=== PATIENT | female | born 1970 | race Caucasian/White ===

== ENCOUNTER → 2017-07-20 | Outpatient (CLI) | payer OTHER ==
[~2017-07-20] MED LIST: PRENTAB26
[2017-07-20 18:00] LABS: BASO % 1.5 %; BASO ABS # 0.07 K/uL (0-0.2); COMPLETE YES; EOS % 1.1 %; HEMATOCRIT 43.7 % (37-47); LYMPH % 23.7 %; LYMPH ABS # 1.11 K/uL (1.2-3.4); MEAN CELL VOLUME 88.8 fL (80-100); MEAN CORPUSCULAR HEMOGLOBIN 29.9 pg (25-34); MEAN CORPUSCULAR HGB CONC 33.6 g/dl (32-36); MONO % 4.9 %; NEUT % 68.8 %; PLATELET COUNT 256 K/uL (130-400); RED BLOOD COUNT 4.92 M/uL (4.2-5.4); WHITE BLOOD COUNT 4.69 K/uL (4.8-10.8)
[2017-07-20 18:13] LABS: ALT/SGPT 24 U/L (12-78); BLOOD UREA NITROGEN 14 mg/dl (7-18); BUN/CREATININE RATIO 17.9 (10-20); CALCIUM 9.3 mg/dl (8.5-10.1); CARBON DIOXIDE 29 mmol/L (21-32); CHLORIDE 104 mmol/L (98-107); CREATININE 0.79 mg/dl (0.60-1.20); GLUCOSE 82 mg/dl (70-99); POTASSIUM 3.6 mmol/L (3.5-5.1); SODIUM 139 mmol/L (136-145)
[2017-07-20 18:24] LABS: ALB/GLOB RATIO 1.3 (0.9-2); ALKALINE PHOSPHATASE 63 U/L (45-117); AST/SGOT 12 U/L (15-37); CHOLESTEROL 210 mg/dl (0-200); CHOLESTEROL/HDL RATIO 2.7; HDL CHOLESTEROL 79 mg/dl; LDL CHOLESTEROL CALCULATED 111 mg/dl; TRIGLYCERIDES 100 mg/dl (0-150); VERY LOW DENSITY LIPOPROT CALC 20 mg/dl
[2017-07-20 21:21] LABS: LYME DISEASE AB IGG NEG (NEG)
[2017-07-20 21:23] LABS: LYME DISEASE AB IGM POS (NEG)
[2017-07-23 08:50] LABS: 18KDIGG BAND NONREACTIVE (NONREACTIVE); 23KDIGG BAND NONREACTIVE (NONREACTIVE); 23KDIGM BAND REACTIVE (NONREACTIVE); 28KDIGG BAND NONREACTIVE (NONREACTIVE); 30KDIGG BAND NONREACTIVE (NONREACTIVE); 39KDIGG BAND NONREACTIVE (NONREACTIVE); 39KDIGM BAND NONREACTIVE (NONREACTIVE); 41KDIGG BAND NONREACTIVE (NONREACTIVE); 41KDIGM BAND NONREACTIVE (NONREACTIVE); 45KDIGG BAND NONREACTIVE (NONREACTIVE); 58KDIGG BAND NONREACTIVE (NONREACTIVE); 66KDIGG BAND NONREACTIVE (NONREACTIVE); 93KDIGG BAND NONREACTIVE (NONREACTIVE)
== END | disposition home or self-care (01) ==
LOC: C.LABMFLN 11:01
PROVIDERS: ATTEND Physician Assistant
DX: Z00.00 Encounter for general adult medical examination without abnormal findings (principal); Z13.220 Encounter for screening for lipoid disorders; R06.02 Shortness of breath; R07.9 Chest pain, unspecified; Z13.1 Encounter for screening for diabetes mellitus; R53.83 Other fatigue; R52 Pain, unspecified

== ENCOUNTER → 2017-07-20 | Outpatient (CLI) | payer OTHER ==
--- NOTE | 2017-07-20 13:38 | DIAGNOSTIC IMAGING REPORT ---
CHEST 2 VIEWS ROUTINE HISTORY: 47 years-old Female CHEST PAIN, PALPITATIONS, SHORTNESS OF BREATH acute atypical chest pain with lightheadedness COMPARISON: None available TECHNIQUE: 2 views of the chest FINDINGS: Cardiomediastinal and hilar silhouettes are within normal limits. There is no pneumothorax, pleural effusion, focal airspace consolidation or overt pulmonary edema. Bones of the chest are grossly intact. Cholecystectomy clips noted. Surgical clip projects over the left mid breast. IMPRESSION: No acute cardiopulmonary process. The above report was generated using voice recognition software. It may contain grammatical, syntax or spelling errors. Electronically signed by: Randal Josue M.D. 07/20/2017 1:37 PM Dictated Date/Time: 07/20/2017 1:36 PM
== END | disposition home or self-care (01) ==
LOC: C.RAD 13:10
PROVIDERS: ATTEND Physician Assistant
DX: R07.9 Chest pain, unspecified (principal); R00.2 Palpitations; R06.02 Shortness of breath

== ENCOUNTER → 2017-08-18 | Outpatient (CLI) | payer OTHER ==
--- NOTE | 2017-08-18 15:02 | EXERCISE STRESS ECHO ---
*NOTICE TO RECEIVING [employer] This information is strictly Confidential and protected under [place] law. [place] law prohibits you from making any further disclosure of this information unless further disclosure is expressly permitted by the written consent of the person to whom it pertains or is authorized by law. A general authorization for the release of medical or other information is not sufficient for this purpose. Hospital accepts no responsibility if the information is made available to any other person, INCLUDING THE PATIENT. Interpretation Summary * Name: CAMERON SOLORZANO Study Date: 08/18/2017 09:52 AM BP: 105/75 mmHg * Patient Location: [facility] HR: 64 * : 1970 (M/d/yyyy) Gender: Female Height: 64 in * Age: 47 yrs Ethnicity: CA Weight: 124 lb * Ordering Physician: Rodrigo Green * Referring Physician: Nolvia Suarez * Performed By: Yris Limon RCS * * Reason For Study: CHEST PAIN / SOB * BSA: 1.6 m2 * -- Conclusions -- * Stress Echo: * 1. Negative stress echo for ischemia at 95 % MPHR. * 2. Negative exercise ECG for ischemia at 95 % MPHR. * 3. Appropriate blood pressure response to exercise. * 4. No arrhythmia. * 5. Study terminated due to fatigue. No chest pain reported. * 6. Good exercise tolerance. * Echo: * 1. Normal left ventricular size and systolic function. EF 55-60%. No regional wall motion abnormalities. No left ventricular hypertrophy. No significant diastolic dysfunction. * 2. No significant valvular abnormalities. * 3. Normal estimated right ventricular systolic pressure; 20mmHg. Procedure Details * ECHOEX, CPT #[id number] * ECHO COLOR FLOW, CPT #[id number] * ECHO DOPPLER, CPT #[id number] Left Ventricle * The left ventricle is normal in size. * There is normal left ventricular wall thickness. * Left ventricular systolic function is normal. * The left ventricular ejection fraction increases normally with stress. The left ventricular end-systolic cavity size reduces post-stress (normal response). The left ventricular wall motion with stress is normal. * Resting wall motion: Normal. Stress wall motion: Appropriate increase in Left ventricular systolic function and decrease in cavity size. No stress induced segmental wall motion abnormalities. * No regional wall motion abnormalities noted. Right Ventricle * The right ventricle is normal in size and function. * The right ventricular systolic function is normal as assessed by tricuspid annular plane systolic excursion (TAPSE) (normal >1.5 cm). Atria * The left atrial size is normal. * Right atrial size is normal. * There is no evidence of atrial septal defect, but resolution does not allow assessment for a patent foramen ovale. Mitral Valve * The mitral valve leaflets appear normal. There is no evidence of stenosis, fluttering, or prolapse. * There is trace mitral regurgitation. Tricuspid Valve * The tricuspid valve is not well visualized, but is grossly normal. * There is no tricuspid stenosis. * There is trace tricuspid regurgitation. Aortic Valve * The aortic valve is trileaflet. * No hemodynamically significant valvular aortic stenosis. * Trace aortic regurgitation. Pulmonic Valve * The pulmonary valve is inadequately visualized, but the Doppler data is adequate for interpretation. * There is no significant pulmonary regurgitation. Great Vessels * The aortic root is normal size. * Aortic arch of normal dimension. * Normal pulmonary venous flow pattern. Normal pulmonary venous flow pattern. Pericardium * There is no pericardial effusion. Stress Parameters * NSR * No arrhythmia were noted with stress. * Stress ECG: No ST changes. No arrhythmias. * The stress portion of this study was personally supervised by the undersigned interpreting physician. * Rest heart rate was '64' BPM. * Rest blood pressure was '105/75' * Maximum heart rate achieved was 164 bpm. * Maximum blood pressure was '153/80' * Total exercise time was '10:05' * Maximum exercise MET level achieved was '11.80' METS * Maximum heart rate was 95 % of maximum age-predicted heart rate. * Maximum treadmill speed was '4.20' miles per hour. * Maximum treadmill elevation was '16.00'% grade. * Exercise was terminated due to 'fatigue' * Normal blood pressure response to exercise. MMode 2D Measurements and Calculations IVSd 0.92 cm IVSs 1.1 cm LVIDd 4.0 cm LVIDs 2.9 cm LVPWd 0.67 cm LVPWs 0.99 cm IVS/LVPW 1.4 FS 27.8 % EDV(Teich) 70.2 ml ESV(Teich) 32.0 ml EF(Teich) 54.4 % EDV(cubed) 64.2 ml ESV(cubed) 24.2 ml EF(cubed) 62.3 % % IVS thick 25.1 % % LVPW thick 47.2 % LV mass(C)d 92.7 grams LV mass(C)dI 58.1 grams/m\S\2 LV mass(C)s 86.3 grams LV mass(C)sI 54.1 grams/m\S\2 SV(Teich) 38.2 ml SI(Teich) 23.9 ml/m\S\2 SV(cubed) 40.0 ml SI(cubed) 25.1 ml/m\S\2 Ao root diam 2.8 cm Ao root area 6.4 cm\S\2 LA dimension 2.6 cm LA/Ao 0.92 LVOT diam 1.8 cm LVOT area 2.5 cm\S\2 LVAd ap4 26.9 cm\S\2 LVLd ap4 7.9 cm EDV(MOD-sp4) 75.8 ml EDV(sp4-el) 78.0 ml LVAs ap4 16.2 cm\S\2 LVLs ap4 6.5 cm ESV(MOD-sp4) 35.0 ml ESV(sp4-el) 33.9 ml EF(MOD-sp4) 53.9 % EF(sp4-el) 56.5 % LVAd ap2 29.1 cm\S\2 LVLd ap2 8.1 cm EDV(MOD-sp2) 86.5 ml EDV(sp2-el) 88.3 ml LVAs ap2 15.2 cm\S\2 LVLs ap2 6.7 cm ESV(MOD-sp2) 31.4 ml ESV(sp2-el) 29.3 ml EF(MOD-sp2) 63.8 % EF(sp2-el) 66.8 % LVLd %diff 2.9 % EDV(MOD-bp) 82.5 ml LVLs %diff 2.2 % ESV(MOD-bp) 33.3 ml EF(MOD-bp) 59.7 % SV(MOD-sp4) 40.8 ml SI(MOD-sp4) 25.6 ml/m\S\2 SV(MOD-sp2) 55.2 ml SI(MOD-sp2) 34.6 ml/m\S\2 SV(MOD-bp) 49.2 ml SI(MOD-bp) 30.8 ml/m\S\2 SV(sp4-el) 44.1 ml SI(sp4-el) 27.6 ml/m\S\2 SV(sp2-el) 59.0 ml SI(sp2-el) 36.9 ml/m\S\2 Doppler Measurements and Calculations MV E max nestor 68.5 cm/sec MV A max nestor 54.5 cm/sec MV E/A 1.3 MV P1/2t max nestor 88.9 cm/sec MV P1/2t 79.6 msec MVA(P1/2t) 2.8 cm\S\2 MV dec slope 326.9 cm/sec\S\2 MV dec time 0.21 sec Ao V2 max 130.3 cm/sec Ao max PG 6.8 mmHg Ao max PG (full) 1.5 mmHg GEOFFREY(V,A) 2.2 cm\S\2 GEOFFREY(V,D) 2.2 cm\S\2 AI max nestor 379.6 cm/sec AI max PG 57.6 mmHg AI dec slope 124.9 cm/sec\S\2 AI P1/2t 890.1 msec LV V1 max PG 5.3 mmHg LV V1 max 114.9 cm/sec TR max nestor 205.8 cm/sec RVSP(TR) 19.9 mmHg RAP systole 3.0 mmHg
== END | disposition home or self-care (01) ==
LOC: C.CPL 09:26
PROVIDERS: ATTEND Physician Assistant
DX: R06.02 Shortness of breath (principal); R07.9 Chest pain, unspecified

== ENCOUNTER → 2017-09-26 | Day surgery (SDC) | payer OTHER ==
[2017-09-14 08:23] VITALS: Ht 162.6 cm; Wt 56.8 kg
[~2017-09-26] VITALS: Ht 162.6 cm; Wt 56.8 kg
[~2017-09-26] MED LIST changes: +ACET-1256 PO; +B-COTAB18 PO; +FENTANYL CITRATE INJ 50 MCG/1 ML 2 ML VIAL ONE; +FLUT0.15 NAE; +IBUP-103 PO; +LIDOCAINE HCL 2% 2 ML VIAL (20MG/ML) ONE; +OMEP40CA41 PO; -PRENTAB26; +PROPOFOL IV EMULSION 10 MG/ML 20 ML VIAL IV ONE
--- NOTE | 2017-09-26 13:04 | Endo History and Physical ---
History & Physical Date of Service: Sep 26, 2017. Chief Complaint: Epigastric pain Referring Physician: Vera Suarez History of Present Illness 47 yo CF who presents for EGD secondary to epigastric abdominal pain. Past Surgical History Hx Cardiac Surgery: No Hx Internal Defibrillator: No Hx Pacemaker: No Hx Abdominal Surgery: Yes (BORIS WITH UMBILICAL HERNIA REPAIR, ENDOMETRIAL ABLATION) Hx of Implantable Prosthesis: No Hx Post-Op Nausea and Vomiting: No Hx Cancer Surgery: No Hx Thoracic Surgery: No Hx Orthopedic: No Hx Urinary Tract Surgery: No Family History Colon CA, Polyp Social History Smoking Status: Never Smoker Hx Substance Use: No Hx Alcohol Use: Yes (OCCASIONAL) Allergies Coded Allergies: NO KNOWN DRUG ALLERGIES (Verified Allergy, Unknown, ., 09/14/17) Shellfish (Verified Allergy, Unknown, GI UPSET, 09/14/17) Current Medications Reported Home Medications Medications Dose Route/Sig Max Daily Dose Days Date Category Advil (Ibuprofen) 200 Mg Tab 200-600 Mg PO Q4H 09/26/17 Reported Tylenol (Acetaminophen) 500 Mg Tab 2 Tab PO Q6 7 09/26/17 Reported Vitamin B Complex (B-Complex Vitamins) 1 Tab Tab 1 Tab PO DAILY 09/14/17 Reported Flonase Allergy Relief (Fluticasone Propionate (Nasal)) 50 Mcg/Act Spr 2 Sprays TETO DAILY PRN 09/14/17 Reported Prilosec (Omeprazole) 40 Mg Cap 40 Mg PO QAM 09/14/17 Reported Vital Signs Weight (Kilograms): 56.82 Height (Feet): 5 Height (Inches): 4 Date Time Temp Pulse Resp B/P (MAP) Pulse Ox O2 Delivery O2 Flow Rate FiO2 09/26/17 12:47 36.9 80 18 126/84 (98) 99 Room Air Physical Exam General Appearance: WD/WN, no apparent distress Respiratory/Chest: Auscultation: breath sounds normal Cardiovascular: Heart Auscultation: RRR Abdomen: Bowel Sounds: normal Inspection & Palpation: soft, non-distended, no tenderness, guarding & rebound Assessment and Plan Assessment: 47 yo CF who presents for EGD secondary to epigastric abdominal pain. Plan: Proceed with EGD.
--- NOTE | 2017-09-26 13:40 | Discharge Instructions ---
Endoscopy Patient Instructions Date / Procedure(s) Performed Sep 26, 2017. EGD Allergy Information Coded Allergies: NO KNOWN DRUG ALLERGIES (Verified Allergy, Unknown, ., 09/14/17) Shellfish (Verified Allergy, Unknown, GI UPSET, 09/14/17) Discharge Date / Findings Sep 26, 2017. Duodenal biopsies Gastritis s/p biopsies Gastric ulcer Medication Instructions 1) Start Carafate 1g by mouth four times daily prior to each meal and at bedtime for 10 days. 2) OK to resume all medications today as prescribed Reported Home Medications Medications Dose Route/Sig Max Daily Dose Days Date Category Advil (Ibuprofen) 200 Mg Tab 200-600 Mg PO Q4H 09/26/17 Reported Tylenol (Acetaminophen) 500 Mg Tab 2 Tab PO Q6 7 09/26/17 Reported Vitamin B Complex (B-Complex Vitamins) 1 Tab Tab 1 Tab PO DAILY 09/14/17 Reported Flonase Allergy Relief (Fluticasone Propionate (Nasal)) 50 Mcg/Act Spr 2 Sprays TETO DAILY PRN 09/14/17 Reported Prilosec (Omeprazole) 40 Mg Cap 40 Mg PO QAM 09/14/17 Reported Provider Instructions Activity Restrictions - No exercising or heavy lifting for 24 hours. - Do not drink alcohol the day of the procedure. - Do not drive a car or operate machinery until the day after the procedure. - Do not make any important decisions or sign important papers in 24 hours after the procedure. Following Day: - Return to full activity which may include returning to work/school. Diet Start your diet with liquids and light foods (jello, soup, juice, toast). Then eat your usual diet if not nauseated. Treatment For Common After Affects For mild abdominal pain, bloating, or excessive gas: - Rest - Eat lightly - Lie on right side Follow-Up Information Follow-up with Vera Suarez as scheduled Anesthesia Information What You Should Know You have had a procedure that required some medicine to reduce anxiety and discomfort. This treatment is called moderate sedation. After receiving the treatment, you may be sleepy, but you will be able to breathe on your own. The effects of the treatment may last for several hours. Follow these instructions along with Activity/Diet recommendations noted above: * Do NOT do anything where dizziness or clumsiness would be dangerous. * Rest quietly at home today, then you can be up and about tomorrow. * Have a responsible person stay with you the rest of today. * You may have had an I.V. today. If so, you may take the dressing off later today. Recommendations Call your doctor if: * Trouble breathing * Continuous vomiting for more than 24 hours * Temperature above 101 degrees * Severe abdominal pain or bloating * Pain not relieved by pain medicine ordered * There is increased drainage or redness from any incision * A large amount of rectal bleeding greater than 2-3 tablespoons. (If you had a polyp/s removed or have hemorrhoids, a small amount of blood - from the rectum is to be expected.) * You have any unanswered questions or concerns. IN THE EVENT OF A SERIOUS EMERGENCY, GO TO THE NEAREST EMERGENCY ROOM Your discharge instructions were prepared by provider Gokul Trevino. Patient Instructions Signature Page Kathy Yancey Patient (or Guardian) Signature/Date: I have read and understand the instructions given to me by my caregivers. Caregiver/RN/Doctor Signature/Date: The above-named patient and/or guardian has received patient instructions on this date. + Original Patient Signature Page (only) stays with chart. Please make copy for patient.
--- NOTE | 2017-09-26 13:54 | GI REPORT ---
Procedure Date: 09/26/2017 1:28 PM Procedure: Upper GI endoscopy Indications: Epigastric abdominal pain Medicines: Monitored Anesthesia Care Complications: No immediate complications. Estimated Blood Loss: Estimated blood loss: none. Procedure: Pre-Anesthesia Assessment: - Prior to the procedure, a History and Physical was performed, and patient medications and allergies were reviewed. The patient's tolerance of previous anesthesia was also reviewed. The risks and benefits of the procedure and the sedation options and risks were discussed with the patient. All questions were answered, and informed consent was obtained. Prior Anticoagulants: The patient has taken no previous anticoagulant or antiplatelet agents. ASA Grade Assessment: II - A patient with mild systemic disease. After reviewing the risks and benefits, the patient was deemed in satisfactory condition to undergo the procedure. After obtaining informed consent, the endoscope was passed under direct vision. Throughout the procedure, the patient's blood pressure, pulse, and oxygen saturations were monitored continuously. The scope was introduced through the mouth, and advanced to the second part of duodenum. The upper GI endoscopy was accomplished without difficulty. The patient tolerated the procedure well. Findings: The esophagus was normal. One non-bleeding linear gastric ulcer with no stigmata of bleeding was found in the gastric antrum. The lesion was 3 mm in largest dimension. Localized moderate inflammation characterized by erythema was found on the greater curvature of the stomach and in the gastric antrum. Biopsies were taken with a cold forceps for histology. The examined duodenum was normal. Biopsies for histology were taken with a cold forceps for evaluation of celiac disease. Impression: - Normal esophagus. - Non-bleeding gastric ulcer with no stigmata of bleeding. - Gastritis. Biopsied. - Normal examined duodenum. Biopsied. Recommendation: - Resume previous diet. - Continue present medications. - Await pathology results. - Use sucralfate suspension 1 gram PO QID for 10 days. - Return to GI clinic as previously scheduled. Gokul Trevino, DO 09/26/2017 1:53:29 PM This report has been signed electronically. Note Initiated On: 09/26/2017 1:28 PM I attest to the content of the Intraoperative Record and orders documented therein, exceptions below
[2017-09-26 14:06] VITALS: BP 136/97; PULSE 71; O2SAT 99
== END | disposition home or self-care (01) ==
LOC: C.GI 12:26
PROVIDERS: ATTEND Internal Medicine
DX: K29.50 Unspecified chronic gastritis without bleeding (principal); K25.9 Gastric ulcer, unspecified as acute or chronic, without hemorrhage or perforation; Z90.49 Acquired absence of other specified parts of digestive tract; Z91.013 Allergy to seafood; Z98.890 Other specified postprocedural states; Z80.0 Family history of malignant neoplasm of digestive organs